=== PATIENT | female | born 1995 | race African-American/Black ===

== ENCOUNTER 2023-07-25 13:11 | Emergency (ER) | payer MEDICAID ==
[~2023-07-25] VITALS: Ht 165.1 cm; Wt 83.6 kg
[2023-07-25 13:55] LABS: Urine Bacteria NONE SEEN /hpf (None Seen); Urine Blood Negative /uL (Negative); Urine Clarity HAZY (Clear); Urine Color Yellow (Yellow); Urine Mucus FEW (None Seen); Urine Protein, UAD 1+ (Negative); Urine Specific Gravity 1.027 (1.001-1.035); Urine Urobilinogen Normal (Negative); Urine WBC 117 /hpf (0 - 5); Urine pH 6.5 (5.0-8.0)
[2023-07-25 14:51] VITALS: BP 137/91; PULSE 65; RESP 16; TEMP 99.5; O2SAT 99
[2023-07-25] MEDS ORDERED: LIDOCAINE 1% HCL (LOCAL ANESTH.) INJ 20ML MDV ONE (15:24)
[2023-07-25] MEDS ORDERED: MET500T PO (15:26)
[2023-07-25] MEDS ORDERED: AZITHROMYCIN 250 MG TAB PO ONE (15:30)
[2023-07-25] MEDS ORDERED: cefTRIAXone SOD 500 MG VL IM ONE (15:30)
[2023-07-25 15:45] LABS: Vaginal Trichomonas Not Present
[2023-07-25 15:46] LABS: Vaginal Bacteria Few; Vaginal Clue Cells Few; Vaginal Epithelial Cells Few
[2023-07-27 19:06] LABS: Chlamydia Trachomatis, NAA Negative (Negative); Neisseria gonorrhoeae, NAA Negative (Negative)
== END 2023-07-25 15:28 | disposition home or self-care (01) ==
LOC: ER 13:11
DX: N76.0 Acute vaginitis (principal)
CPT/HCPCS: 81001; 87210; 87491; 87591; 96372; 99283; J0696; J2001